=== PATIENT | female | born 1990 | race African-American/Black ===

== ENCOUNTER 2019-11-22 20:01 | Emergency (ER) | payer SELFPAY ==
[~2019-11-22] VITALS: Ht 170.2 cm; Wt 107.0 kg
[2019-11-22 20:05] VITALS: BP 121/74
[2019-11-22] MEDS ORDERED: AMOX500T PO (20:35)
--- NOTE | 2019-11-22 20:36 | PHYS DOC ---
Past Medical History Past Medical History: No Pertinent History Past Surgical History: No Surgical History Smoking Status: Current Every Day Smoker Alcohol Use: Occasionally General Adult EDM: Chief Complaint: SORE THROAT HPI: HPI: Patient is a 29 year old AA female who presents emergency department with complaints of increased sore throat for the last 2 days. She also complains of pain radiating to her left ear. She denies any fever, cough, nasal congestion, shortness of breath, wheezing, nausea, vomiting, diarrhea, or body aches. She denies any rash. Patient states she had a similar illness about a week ago but the symptoms went away until 2 days ago. She currently rates her pain a 6 out of 10 on the pain scale, she denies any alleviating factors, the pain increases with swallowing. Review of Systems: Review of Systems: Constitutional: Denies fever or chills. [] Eyes: Denies change in visual acuity. [] HENT: See HPI Respiratory: Denies cough or shortness of breath. [] Cardiovascular: Denies chest pain or edema. [] GI: Denies abdominal pain, nausea, vomiting, or diarrhea. [] Musculoskeletal: Denies back pain or joint pain. [] Integument: Denies rash. [] Neurologic: Denies headache Lymphatic: Reports left cervical lymph node enlargement Psychiatric: Denies depression or anxiety. [] Heart Score: Risk Factors: Risk Factors: DM, Current or recent (<one month) smoker, HTN, HLP, family history of CAD, obesity. Risk Scores: Score 0 - 3: 2.5% MACE over next 6 weeks - Discharge Home Score 4 - 6: 20.3% MACE over next 6 weeks - Admit for Clinical Observation Score 7 - 10: 72.7% MACE over next 6 weeks - Early Invasive Strategies Allergies: Allergies: Allergies Coded Allergies Type Severity Reaction Last Updated Verified No Known Drug Allergies 11/22/19 No Physical Exam: PE: Constitutional: Well developed, well nourished, no acute distress, non-toxic appearance, obese HENT: Normocephalic, atraumatic, bilateral external ears normal, nose normal; erythema posterior pharynx with 1+ tonsils bilaterally and exudate. [] Eyes: PERRLA, EOMI, conjunctiva normal, no discharge. [] Neck: Normal range of motion, no stridor, left anterior cervical chain lymphadenopathy and tenderness to palpation. [] Cardiovascular:Heart rate regular rhythm Lungs & Thorax: Respirations even and unlabored, no retractions, no respiratory distress Skin: Warm, dry, no erythema, no rash. [] Extremities: No cyanosis, ROM intact, no edema. [] Neurologic: Alert and oriented X 3, no focal deficits noted. [] Psychologic: Affect normal, judgement normal, mood normal. [] Current Patient Data: Vital Signs: Vital Signs Date Time Temp Pulse Resp B/P (MAP) Pulse Ox O2 Delivery O2 Flow Rate FiO2 11/22/19 20:05 98.8 98 20 121/74 (90) 98 Room Air 98.8 EKG: EKG: [] Radiology/Procedures: Radiology/Procedures: [] Course & Med Decision Making: Course & Med Decision Making Pertinent Labs and Imaging studies reviewed. (See chart for details) [] Dragon Disclaimer: Dragon Disclaimer: This electronic medical record was generated, in whole or in part, using a voice recognition dictation system. Departure Departure Impression: Primary Impression: Pharyngitis, acute Qualified Codes: J02.9 - Acute pharyngitis, unspecified Disposition: HOME, SELF-CARE Condition: STABLE Referrals: NO PCP (PCP) Patient Instructions: Viral and Bacterial Pharyngitis, [id number] Additional Instructions: Fill prescription and use as directed. Recommend warm salt water gargles as needed for relief of discomfort. Alternate Tylenol and ibuprofen as needed for fever/pain. Discard your toothbrush tomorrow and begin using a new toothbrush. Follow-up with primary care doctor if symptoms persist. Return to the ER if symptoms worsen. Scripts Amoxicillin (AMOXICILLIN) 500 Mg Tablet 1 TAB PO BID for 10 Days, #20 TAB 0 Refills Prov: RON BUNCH GIMP TACKER 11/22/19 Justicifation of Admission Dx: Justifications for Admission: Justification of Admission Dx: N/A RON BUNCH G[employer] TACKER Nov 22, 2019 20:36
== END 2019-11-22 20:40 | disposition home or self-care (01) ==
LOC: ER 20:01
DX: J02.9 Acute pharyngitis, unspecified (principal); H92.02 Otalgia, left ear; L53.9 Erythematous condition, unspecified; F17.200 Nicotine dependence, unspecified, uncomplicated
CPT/HCPCS: 99283